=== PATIENT | female | born 1930 | race Caucasian/White ===

== ENCOUNTER 2017-02-08 07:38 | Day surgery (SDC) | payer MEDICARE ==
[~2017-02-08] VITALS: Ht 160 cm; Wt 72.8 kg
--- NOTE | ~2017-02-08 | OR ---
PATIENT'S NAME: AZIZA TO [facility] AGE: 86 Y [address] ROOM: [place] [address] LOCATION: [facility] [place] ADMIT DATE: 02/08/2017 OR/Procedure Report DISCHARGE DATE: FAMILY PHYSICIAN: Ricardo Brambila MD ATTENDING PHYSICIAN: Tanner Brooks V SURGEON: Tanner Brooks MD PAPER FEEDER: Logan Pleitez MD-Student. DATE OF PROCEDURE: 02/08/2017 PREOPERATIVE DIAGNOSIS: Right parotid mass. POSTOPERATIVE DIAGNOSIS: Right parotid mass. PROCEDURE PERFORMED: Right superficial parotidectomy with facial nerve dissection. ANESTHESIA: General endotracheal anesthesia. ESTIMATED BLOOD LOSS: 15 mL. PATHOLOGY: Right superficial parotidectomy. FINDINGS: The patient had approximately 2.5 cm mass in the anterior portion of her parotid gland. The facial nerve was anatomically and physiologically intact at the conclusion of the procedure. INDICATION: Aziza To is an 86-year-old female with a right parotid mass. 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 The patient wished to proceed forward with the superficial parotidectomy. PROCEDURE DETAILS: The patient was seen in the preoperative holding area. Informed written consent was obtained from the patient for a right superficial parotidectomy. After full knowledge of the risks, benefits, and alternatives, the patient wished to proceed. The patient was taken to the operating room and placed on the operating room table. General endotracheal anesthesia was induced without any difficulty. A time-out was performed identifying the patient as well as the procedure to be performed. All pressure points were padded. We marked a modified Jose F incision in the right preauricular skin and down into a neck crease in the neck. We then infiltrated this with 1% lidocaine with 1:100,000 parts of epinephrine. The patient was then prepped and draped in the normal sterile fashion. We used a 15-blade to incise through our premarked incision into the subcutaneous tissue. We elevated a skin flap in the superficial muscular PATIENT'S NAME: AZIZA TO [facility] AGE: 86 Y [address] ROOM: [place] [address] LOCATION: [facility] [place] ADMIT DATE: 02/08/2017 OR/Procedure Report DISCHARGE DATE: FAMILY PHYSICIAN: Ricardo Brambila MD ATTENDING PHYSICIAN: Tanner Brooks V aponeurotic system layer and in the subplatysmal layer. We took this until we could identify the anterior most border of the parotid gland. We then placed stay sutures in her skin flaps for retraction. We then began our dissection just anterior to the tragal cartilage and hugged the cartilages as we separate parotid gland from the tragus. We then followed this down inferiorly and identified the anterior border of her sternocleidomastoid muscle. There was an external jugular vein, which we suture ligated and divided. We identified the tragal pointer as well as the tympanomastoid suture. This marked our landmarks for identifying the facial nerve. We did identify the main branch of the facial nerve in its normal anatomic location and the takeoffs of the upper and lower divisions at the pes. We first followed the lower division and performed a flanky maneuver in order to free the parotid gland from the surrounding tissue. We then traced the upper division and performed a similar flanky maneuver superiorly in order to free the gland. We then traced out each individual branch of the facial nerve meticulously and removed the overlying parotid tissue. With this, we were able to get around the mass and free the superficial parotid specimen from the patient. We stimulated the facial nerve and it was pulled anatomically and physiologically intact. We copiously irrigated the wound with sterile saline and antibiotic solution. We placed a Raciel-Jimenez drain into the wound and then turned our attention to closing. We used a 3-0 Vicryl suture in a deep interrupted fashion to close the deep portions of the wound. We used a 6-0 nylon suture to close the skin. This marked the conclusion of the procedure. All sponge and needle counts were correct x2. The patient was passed back to Anesthesia where she was extubated without any difficulty and transported to PACU in stable condition. LOGAN PLEITEZ MD-STUDENT FOR MD Edwige VASQUEZY/nestorl /[id number] d: 02/08/179 t: 08/21/17 0957, OPERATIVE SUMMARY
[~2017-02-08 07:38] MED LIST: ARTIFICIAL TEAR15 ML OPHTH; ASPIRIN EC81 MG PO; BENTYL20 MG PO; CARBATROL 200200 MG PO; CYMBALTA60 MG PO; GLUCOPHAGE1000 MG PO; LIPITOR20 M1 PO; LISINOPRIL-HCT1 EAC1 PO; NICARDIPINE HCL30 MG PO; PRESERVISION L1 EACH PO; PRILOSEC20 MG PO; SINGULAIR10 MG PO; TENORMIN50 MG PO
--- NOTE | 2017-02-08 15:56 | NUR ---
Significant Event: Patient returned from PACU at 1445. VSS. Ice to neck/ear incision. [place] 1 tab last at 1325 & 1405. Resting comfortably in room at this time. Weaned to 1 L of O2, doing very well with deep breaths frequently, Mild SS, RONIT drain 20ml out. Follow up:
--- NOTE | 2017-02-09 04:41 | NUR ---
Significant Event: A/O X3 AND COOPERATIVE WITH CARES. PATIENT HAS MACULAR DEGENERATION. INCISIONS TO R) EAR/NECK SUTURED AND WELL APPROXIMATED. INCISION CARES COMPLETED. RONIT DRAIN DRAINED Q8HRS AND HAD 10ML OUT AT 2100. IV TO L) FA FLUSHES WELL AND SALINE LOCKED. AC/HS ACCUCHECKS WITH MILD SSI. VSS AND AFEBRILE. WEANED OFF O2 OVERNIGHT. UP WITH 1 ASSIST. VOIDING WELL. Follow up:
[2017-02-09] MEDS ORDERED: NORCO 5-325 TA1 EACH PO (08:33)
--- NOTE | 2017-02-09 08:58 | NUR ---
DISCHARGE: Pt. was explained parotidectomy surgery, d/c instructions, and medication education on norco. Verbalized understanding, no questions or concerns. Daughter and son in law also verbalized understanding. IV removed by primary nurse. Left with all belongings and prescriptions. Returned to home with family.
--- NOTE | 2017-02-09 09:56 | NUR ---
Significant event: Up in room with one assist. Gait steady. Appetite good. Sutures intact to neck and in front of ear. Dismissed to home with daughter.
== END 2017-02-09 09:43 | disposition disaster alternative care site (69) ==
LOC: GMSU 07:38 → GSDC 07:38 → GPOC 10:00 → GMSU 15:03 → GSDC 02-09 09:43
PROC: 0CB80ZZ Excision of Right Parotid Gland, Open Approach (ICD-10-PCS; principal; 2017-02-08)
PROC: 00BM0ZZ Excision of Facial Nerve, Open Approach (ICD-10-PCS; 2017-02-08)
DX: D11.0 Benign neoplasm of parotid gland (principal); G50.0 Trigeminal neuralgia; G51.0 Bell's palsy; M19.049 Primary osteoarthritis, unspecified hand; K21.9 Gastro-esophageal reflux disease without esophagitis; E78.00 Pure hypercholesterolemia, unspecified; H35.3190 Nonexudative age-related macular degeneration, unspecified eye, stage unspecified; M81.0 Age-related osteoporosis without current pathological fracture; Z79.82 Long term (current) use of aspirin; F41.9 Anxiety disorder, unspecified; E11.22 Type 2 diabetes mellitus with diabetic chronic kidney disease; I12.9 Hypertensive chronic kidney disease with stage 1 through stage 4 chronic kidney disease, or unspecified chronic kidney disease; N18.3 Chronic kidney disease, stage 3 (moderate); E66.3 Overweight; Z68.28 Body mass index [BMI] 28.0-28.9, adult; Z90.49 Acquired absence of other specified parts of digestive tract; Z79.899 Other long term (current) drug therapy
CPT/HCPCS: J1100; J2001; J2405; J7030; J7120